=== PATIENT | female | born 1955 | race Caucasian/White ===

== ENCOUNTER 2016-06-10 06:45 | Day surgery (SDC) | payer BC ==
[~2016-06-10] VITALS: Ht 170.2 cm; Wt 76.6 kg
[~2016-06-10 06:45] MED LIST: ATIVAN0.5 MG PO; BENADRYL25 MG PO; CRESTOR5 MG PO; GLUCOPHAGE500 MG PO; LOPID600 MG PO; LOTREL 5/201 CAPSULE PO; TOPROL XL100 MG PO; TRADJENTA5 MG PO
[2016-06-10 07:14] VITALS: BP 143/80
[2016-06-10 07:47] LABS: POINT-OF-CARE METER ID UU14174212
[2016-06-10 10:47] LABS: POINT-OF-CARE METER ID UU13113675
[2016-06-10 11:40] VITALS: BP 144/79
[2016-06-10 15:35] VITALS: BP 117/67
[2016-06-10 16:04] LABS: HEMATOCRIT 34.5 % (36.0-46.0); MCH 29.3 PG (29.0-34.0); MCHC 33.9 G/DL (30.0-36.0); MCV 86.3 FL (83-99); MEAN PLAT.VOLUME 11.5 uM^3 (9.5-12.4); PLATELET COUNT 242 K/uL (156-360); RBC DIS.WIDTH-CV 12.4 % (11.8-14.6); RBC DIS.WIDTH-SD 39.2 % (39-53)
[2016-06-10 16:11] LABS: ANION GAP 10 MEQ/L (2-14); CHLORIDE 104 MEQ/L (99-109); GFR ESTIMATE (CALCULATED) > 59 mL/min/; GLUCOSE 190 mg/dL (70-99); POTASSIUM 4.4 MEQ/L (3.7-5.4); SAMPLE HEMOLYSIS CHECK 0; SAMPLE ICTERIC CHECK 0; SAMPLE LIPEMIA CHECK 0; SODIUM 139 MEQ/L (136-147); UREA NITROGEN (BUN) 17 mg/dL (9-23)
[2016-06-10 16:12] LABS: WHITE BLOOD COUNT 10.8 K/uL (4.1-10.2)
[2016-06-10 17:54] LABS: POINT-OF-CARE USER ID STWLMB34
[2016-06-10 19:33] VITALS: BP 113/59
[2016-06-11 00:35] VITALS: BP 113/55
[2016-06-11 03:50] VITALS: BP 129/60
[2016-06-11 06:46] LABS: HEMATOCRIT 32.6 % (36.0-46.0); MCH 28.8 PG (29.0-34.0); MCHC 33.1 G/DL (30.0-36.0); MCV 86.9 FL (83-99); MEAN PLAT.VOLUME 11.3 uM^3 (9.5-12.4); PLATELET COUNT 232 K/uL (156-360); RBC DIS.WIDTH-CV 12.6 % (11.8-14.6); RBC DIS.WIDTH-SD 40.3 % (39-53); RED BLOOD COUNT 3.75 M/uL (3.80-5.20); WHITE BLOOD COUNT 7.7 K/uL (4.1-10.2)
[2016-06-11 07:08] LABS: ANION GAP 8 MEQ/L (2-14); CHLORIDE 106 MEQ/L (99-109); GFR ESTIMATE (CALCULATED) > 59 mL/min/; GLUCOSE 130 mg/dL (70-99); POTASSIUM 3.9 MEQ/L (3.7-5.4); SAMPLE HEMOLYSIS CHECK 0; SAMPLE ICTERIC CHECK 0; SAMPLE LIPEMIA CHECK 0; SODIUM 143 MEQ/L (136-147); UREA NITROGEN (BUN) 12 mg/dL (9-23)
[2016-06-11 08:00] VITALS: BP 114/59
[2016-06-11] MEDS ORDERED: TRAMADOL HCL50 MG PO (09:52)
== END 2016-06-11 10:33 | disposition home or self-care (01) ==
LOC: SDC 06:45 → 2SOUTH 10:15 → 2EASTP 11:35 → SDC 13:35 → 2EASTP 06-11 10:33
PROVIDERS: Obstetrics & Gynecology Gynecologic Oncology
PROC: 0UT97ZZ Resection of Uterus, Via Natural or Artificial Opening (ICD-10-PCS; principal; 2016-06-10)
DX: N81.3 Complete uterovaginal prolapse (principal); I10 Essential (primary) hypertension; M19.90 Unspecified osteoarthritis, unspecified site; E11.9 Type 2 diabetes mellitus without complications; F17.200 Nicotine dependence, unspecified, uncomplicated
CPT/HCPCS: 80048; 82948; 85027; 88307; 94799; G0378; J0131; J0171; J0330; J0690; J1100; J1650; J1815; J1885; J2270; J2405; J3010; J7120

== ENCOUNTER 2016-10-17 23:42 | Emergency (ER) | payer OTHER ==
[~2016-10-17] VITALS: Ht 170.2 cm; Wt 74.7 kg
[~2016-10-17 23:42] MED LIST changes: +TRAMADOL HCL50 MG PO
[2016-10-17 23:51] VITALS: BP 153/94
== END 2016-10-18 00:24 | disposition left against medical advice (07) ==
LOC: EME 23:42
DX: S09.93XA Unspecified injury of face, initial encounter (principal); V47.5XXA Car driver injured in collision with fixed or stationary object in traffic accident, initial encounter; Y92.410 Unspecified street and highway as the place of occurrence of the external cause; Z72.0 Tobacco use; I10 Essential (primary) hypertension
CPT/HCPCS: 80048; 81003; 82150; 83690; 85025; 86900; 86901; 99281; 99282; G0480